=== PATIENT | female | born 1935 | race Caucasian/White ===

== ENCOUNTER 2021-08-25 18:39 | Inpatient (IN) ==
[2021-08-25 20:42] LABS: Basophils % 0.2 %; Eosinophils % 0.3 %; Hematocrit 44.5 % (35.3-44.9); Hemoglobin 14.3 g/dL (11.5-15.4); Lymphocytes % 15.7 %; Mean Corpuscular HGB Conc 32.1 g/dL (31.6-35.5); Mean Corpuscular Hemoglobin 30.6 pg (28.0-33.3); Mean Corpuscular Volume 95.3 fL (83.0-100.0); Mean Platelet Volume 10.3 fL (9.4-12.4); Monocytes # 1.1 K/mcL (0.0-1.3); Monocytes % 8.7 %; Neutrophils # 9.3 K/mcL (1.6-8.9); Platelet Count 179 K/mcL (140-400); Red Blood Count 4.67 M/mcL (3.82-4.97); Red Cell Distribution Width 14.5 % (11.5-14.5); Segmented Neutrophils % 74.1 %; White Blood Count 12.5 K/mcL (4.3-11.1)
[2021-08-25] MEDS ORDERED: Isovue-370 500 ML BOTTLE IVP ONE (21:11)
[2021-08-25 21:16] LABS: BUN/Creatinine Ratio 24 (6-26); Blood Urea Nitrogen 22 mg/dL (8-23); Calcium 9.1 mg/dL (8.6-10.3); Carbon Dioxide 38 mEq/L (23-29); Chloride 95 mEq/L (98-107); Glucose 165 mg/dL (70-105); Osmolality,Calculated 299 (280-300); Potassium 3.9 mEq/L (3.5-5.1); Sodium 141 mEq/L (136-145); Troponin I 0.04 ng/mL (< 0.04); eGFR For African Americans > 60 (> 60); eGFR For Non-African Americans 58 (> 60)
[2021-08-25 21:43] LABS: Adenovirus Not Detected (Not Detect); Bordetella Pertussis Not Detected (Not Detect); Chlamydophila pneumoniae Not Detected (Not Detect); Coronavirus 229E Not Detected (Not Detect); Coronavirus HKU1 Not Detected (Not Detect); Coronavirus NL63 Not Detected (Not Detect); Coronavirus OC43 Not Detected (Not Detect); Human Metapneumovirus Not Detected (Not Detect); Human Rhinovirus/Enterovirus Not Detected (Not Detect); Influenza A Subtype 2009 H1 Not Detected (Not Detect); Influenza B Not Detected (Not Detect); Mycoplasma pneumoniae Not Detected (Not Detect); Parainfluenza Virus 1 Not Detected (Not Detect); Parainfluenza Virus 2 Not Detected (Not Detect); Parainfluenza Virus 3 Not Detected (Not Detect); Parainfluenza Virus 4 Not Detected (Not Detect); Respiratory Syncytial Virus Not Detected (Not Detect); SARS-CoV-2 Not Detected (Not Detect)
[2021-08-25] MEDS ORDERED: cefTRIAXone 1,000 MG in Water for inj. (sterile) 10 ML IVP ONE (21:48)
[2021-08-25] MEDS ORDERED: Azithromycin 500 MG in 0.9 % Sodium Chloride 250 ML IVPB ONE (21:48)
[2021-08-25] MEDS ORDERED: *HR* Heparin 5,000 UNIT/ML VIAL IVP PRN ×4 (22:59→23:58)
[2021-08-25] MEDS ORDERED: *HR* Heparin 5,000 UNIT/ML VIAL IVP ONE ×2 (22:59→23:58)
[2021-08-25] MEDS ORDERED: Heparin 25,000UNIT/250ML 1/2NS 25,000 UNIT/250 ML IV.SOLN IVC SCH ×2 (23:00→23:45)
[2021-08-25] MEDS ORDERED: Naloxone 0.4 MG/ML INJ IVP PRN (23:11)
[2021-08-25] MEDS ORDERED: Acetaminophen 325 MG TABLET PO PRN (23:19)
[2021-08-25] MEDS ORDERED: Melatonin 3 MG TABLET PO PRN (23:19)
[2021-08-25] MEDS ORDERED: Ondansetron 4 MG/2 ML VIAL IVP PRN (23:19)
[2021-08-25] MEDS ORDERED: MOM Conc 10 ML UD.LIQ PO PRN (23:19)
[2021-08-25] MEDS ORDERED: *HR* Promethazine 25 MG/ML VIAL IM PRN (23:25)
[2021-08-25] MEDS ORDERED: *HR* Dextrose 50 % in Water (Syg) 50 ML SYRINGE IVP PRN (23:28)
[2021-08-25] MEDS ORDERED: D5% in Water 1,000 ML IVC PRN (23:28)
[2021-08-25] MEDS ORDERED: Dextrose Gel 15 GM/37.5 ML TUBE PO PRN ×2 (23:28)
[2021-08-26] MEDS: Insulin LISPRO 300 UNITS/3 ML VIAL SUBQ SCH ×4 (03:40→16:38)
[2021-08-26 06:01] LABS: Basophils # 0.1 K/mcL (0.0-0.2); Basophils % 0.4 %; Eosinophils # 0.2 K/mcL (0.0-0.6); Eosinophils % 1.3 %; Hematocrit 45.8 % (35.3-44.9); Hemoglobin 14.3 g/dL (11.5-15.4); Immature Granulocytes % 0.8 % (0-4); Lymphocytes # 3.9 K/mcL (0.6-4.6); Lymphocytes % 24.7 %; Mean Corpuscular HGB Conc 31.2 g/dL (31.6-35.5); Mean Platelet Volume 10.2 fL (9.4-12.4); Monocytes # 1.6 K/mcL (0.0-1.3); Monocytes % 9.9 %; Platelet Count 158 K/mcL (140-400); Red Blood Count 4.77 M/mcL (3.82-4.97); Red Cell Distribution Width 14.6 % (11.5-14.5); Segmented Neutrophils % 62.9 %; White Blood Count 15.9 K/mcL (4.3-11.1)
[2021-08-26 06:42] LABS: Alanine Aminotransferase 10 Units/L (7-52); Albumin 3.5 g/dL (3.5-5.7); Albumin/Globulin Ratio 1.5 (1.1-2.2); Alkaline Phosphatase 51 Units/L (34-104); Aspartate Amino Transferase 18 Units/L (13-39); BUN/Creatinine Ratio 22 (6-26); Bilirubin,Direct 0.1 mg/dL (0.0-0.2); Bilirubin,Indirect 0.5 mg/dL (0.0-1.0); Bilirubin,Total 0.6 mg/dL (0.3-1.0); Blood Urea Nitrogen 20 mg/dL (8-23); Calcium 8.9 mg/dL (8.6-10.3); Carbon Dioxide 29 mEq/L (23-29); Chloride 96 mEq/L (98-107); Globulin 2.4 g/dL (2.4-3.5); Glucose 142 mg/dL (70-105); Osmolality,Calculated 295 (280-300); Phosphorous 4.2 mg/dL (2.7-4.5); Sodium 140 mEq/L (136-145); Total Protein 5.9 g/dL (6.4-8.9); Troponin I 0.05 ng/mL (< 0.04); eGFR For African Americans > 60 (> 60); eGFR For Non-African Americans 58 (> 60)
[2021-08-26 09:12] LABS: C-Reactive Protein 24 mg/L (Less than 10)
[2021-08-26] MEDS: cefTRIAXone 1,000 MG in 0.9 % Sodium Chloride Mini Bag 100 ML IVPB SCH (09:56)
[2021-08-26] MEDS: Azithromycin 500 MG in 0.9 % Sodium Chloride 250 ML IVPB SCH (09:56)
[2021-08-26] MEDS ORDERED: *HR* Heparin 5,000 UNIT/ML VIAL IVP ONE (11:39)
[2021-08-26] MEDS ORDERED: *HR* Heparin 5,000 UNIT/ML VIAL IVP PRN ×2 (11:39)
[2021-08-26] MEDS: Heparin 25,000UNIT/250ML 1/2NS 25,000 UNIT/250 ML IV.SOLN IVC SCH (14:38)
[2021-08-27] MEDS: Insulin LISPRO 300 UNITS/3 ML VIAL SUBQ SCH ×4 (03:57→17:32)
[2021-08-27 04:24] LABS: Hematocrit 42.9 % (35.3-44.9); Mean Corpuscular HGB Conc 30.3 g/dL (31.6-35.5); Mean Corpuscular Hemoglobin 29.2 pg (28.0-33.3); Mean Corpuscular Volume 96.4 fL (83.0-100.0); Mean Platelet Volume 10.4 fL (9.4-12.4); Platelet Count 170 K/mcL (140-400); Red Blood Count 4.45 M/mcL (3.82-4.97); Red Cell Distribution Width 14.4 % (11.5-14.5); White Blood Count 13.2 K/mcL (4.3-11.1)
[2021-08-27 04:36] LABS: BUN/Creatinine Ratio 23 (6-26); Blood Urea Nitrogen 18 mg/dL (8-23); Calcium 9.2 mg/dL (8.6-10.3); Carbon Dioxide 36 mEq/L (23-29); Chloride 95 mEq/L (98-107); Glucose 123 mg/dL (70-105); Osmolality,Calculated 293 (280-300); Potassium 3.5 mEq/L (3.5-5.1); Sodium 140 mEq/L (136-145); eGFR For African Americans > 60 (> 60); eGFR For Non-African Americans > 60 (> 60)
[2021-08-27 04:43] LABS: INR 1.1; Prothrombin Time 11.9 Seconds (9.4-12.1)
[2021-08-27 05:01] LABS: Heparin anti-factor XA UFH 1.14 IU/mL (0.30-0.70)
[2021-08-27] MEDS: Azithromycin 500 MG in 0.9 % Sodium Chloride 250 ML IVPB SCH (10:49)
[2021-08-27] MEDS: cefTRIAXone 1,000 MG in Water for inj. (sterile) 10 ML IVP SCH (10:53)
[2021-08-27] MEDS: cefTRIAXone 1,000 MG in 0.9 % Sodium Chloride Mini Bag 100 ML IVPB SCH (10:58)
[2021-08-27] MEDS: Heparin 25,000UNIT/250ML 1/2NS 25,000 UNIT/250 ML IV.SOLN IVC SCH (15:36)
[2021-08-28] MEDS: Insulin LISPRO 300 UNITS/3 ML VIAL SUBQ SCH ×3 (00:23→12:17)
[2021-08-28] MEDS: Azithromycin 500 MG in 0.9 % Sodium Chloride 250 ML IVPB SCH (09:44)
[2021-08-28] MEDS: cefTRIAXone 1,000 MG in Water for inj. (sterile) 10 ML IVP SCH (09:44)
[2021-08-28 11:21] VITALS: BP 144/82; PULSE 91; TEMP 97.9; O2SAT 97
== END 2021-08-28 16:01 | DRG 871 ==
LOC: 2ANU 18:39 → EMEROOARM 18:39 → 2ANU 08-26 01:20 → SUATTDRO 08-26 03:38
PROVIDERS: ADMIT Student in an Organized Health Care Education/Training Program; ATTEND Family Medicine